=== PATIENT | male | born 1975 | race Hispanic/Latino ===

== ENCOUNTER 2017-07-24 19:33 | Emergency (ER) | payer BC ==
[~2017-07-24] VITALS: Ht 177.8 cm; Wt 104.3 kg
[2017-07-24 20:16] LABS: CLARITY,URINE CLEAR (CLEAR); COLOR,URINE YELLOW (YELLOW)
[2017-07-24 20:17] LABS: BILIRUBIN,URINE NEGATIVE (NEGATIVE); KETONES,URINE TRACE (NEGATIVE); LEUKOCYTE ESTERASE ,URINE NEGATIVE (NEGATIVE); NITRITE,URINE NEGATIVE (NEGATIVE); PROTEIN,URINE DIPSTICK NEGATIVE (NEGATIVE); URINE UROBILINOGEN 0.2 mg/dL (0.2 - 1)
[2017-07-24 20:31] LABS: RBC,URINE 0-5 /HPF (0-5)
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
[2017-07-24] MEDS ORDERED: HYDROCODONE/APAP 5MG-325MG TAB PO PRN (23:00)
[2017-07-24 23:54] VITALS: BP 135/85
[2017-07-25] MEDS ORDERED: MOTRIN200 MG PO (00:04)
[2017-07-25] MEDS ORDERED: AZITHROMYCIN250 MG PO (00:04)
[2017-07-25] MEDS ORDERED: ROBAXIN-750750 MG PO (00:04)
[2017-07-25] MEDS ORDERED: TYLENOL WITH C1 EACH PO (00:04)
== END 2017-07-25 00:09 | disposition home or self-care (01) ==
LOC: ER 19:33
DX: S33.5XXA Sprain of ligaments of lumbar spine, initial encounter (principal); V49.40XA Driver injured in collision with unspecified motor vehicles in traffic accident, initial encounter; Y92.410 Unspecified street and highway as the place of occurrence of the external cause; I10 Essential (primary) hypertension; E11.9 Type 2 diabetes mellitus without complications
CPT/HCPCS: 72110; 81001; 99283